=== PATIENT | male | born 1955 | race Caucasian/White ===

== ENCOUNTER 2022-09-25 00:57 | Emergency (ER) | payer MEDICARE, BC ==
[2022-09-25 01:52] LABS: BASOPHILS ABSOLUTE AUTO 0.04 K/mm3 (0.01-0.08); BASOPHILS PERCENT AUTO 0.4 % (0.1-1.2); EOSINOPHILS ABSOLUTE AUTO 0.51 K/mm3 (0.04-0.54); EOSINOPHILS PERCENT AUTO 5.6 (0.8-7.0); HEMATOCRIT 45.5 % (40.1-51.0); HEMOGLOBIN 14.8 gm/dl (13.7-17.5); IMMATURE GRAN ABSOLUTE AUTO 0.02 K/mm3 (0.00-0.10); IMMATURE GRAN PERCENT AUTO 0.2 % (<=1.0); LYMPHOCYTES ABSOLUTE AUTO 2.12 K/mm3 (1.32-3.57); LYMPHOCYTES PERCENT AUTO 23.3 % (21.8-53.1); MEAN CORPUSCULAR HEMOGLOBIN 28.7 pg (25.7-32.2); MEAN CORPUSCULAR HGB CONC 32.5 g/dl (32.2-35.5); MEAN CORPUSCULAR VOLUME 88.3 fl (79.0-92.2); MEAN PLATELET VOLUME 11.9 fl (9.4-12.3); MONOCYTES ABSOLUTE AUTO 0.85 K/mm3 (0.30-0.82); MONOCYTES PERCENT AUTO 9.3 % (5.3-12.2); NEUTROPHILS ABSOLUTE AUTO 5.57 K/mm3 (1.78-5.38); NEUTROPHILS PERCENT AUTO 61.2 % (34.0-67.9); PLATELET COUNT,PLT 199 K/mm3 (163-337); RED BLOOD CELL COUNT 5.15 M/mm3 (4.63-6.08); WHITE BLOOD CELL COUNT,WBC 9.11 K/mm3 (4.23-9.07)
[2022-09-25 02:11] LABS: INR 0.97; PROTHROMBIN TIME 10.4 SECONDS (9.7-12.0)
[2022-09-25 02:19] LABS: A/G RATIO 0.9 (1-2); ALANINE AMINOTRANSFERASE,ALT 21 U/L (16-63); ALBUMIN 3.4 g/dl (3.4-5.0); ALKALINE PHOSPHATASE 73 U/L (46-116); ANION GAP 14.5 (5-15); ASPARTATE AMNIOTRANSFERASE,AST 15 U/L (15-37); BILIRUBIN TOTAL 0.3 mg/dL (0.2-1.0); BLOOD UREA NITROGEN,BUN 15 mg/dL (7-18); BUN/CREATININE RATIO 13.6 (14-18); CALCIUM 8.8 mg/dL (8.5-10.1); CARBON DIOXIDE,CO2 25 mEq/L (21-32); CHLORIDE,CL 105 mEq/L (98-107); CREATININE 1.1 mg/dL (0.7-1.3); ESTIMATED GFR 74 mL/min (>60); GLUCOSE RANDOM 112 mg/dL (70-99); POTASSIUM,K 4.5 mEq/L (3.5-5.1); PROTEIN TOTAL,TP 7.2 g/dl (6.4-8.2); SODIUM,NA 140 mEq/L (136-145); TROPONIN I HIGH SENSITIVITY 6 pg/mL (<=76)
== END 2022-09-25 02:35 | disposition home or self-care (01) ==
LOC: JD.ED 00:57
DX: H81.10 Benign paroxysmal vertigo, unspecified ear (principal); Z91.048 Other nonmedicinal substance allergy status
CPT/HCPCS: 36415; 70450; 70450-26; 80053; 84484; 85025; 85610; 93005; 93010; 99283; 99284

== ENCOUNTER 2023-12-24 13:42 | Emergency (ER) | payer MEDICARE, BC ==
[2023-12-24 16:40] LABS: BASOPHILS PERCENT AUTO 0.1 % (0.0-1.0); HEMATOCRIT 49.9 % (42.0-52.0); HEMOGLOBIN 16.1 gm/dl (14.0-18.0); IMMATURE GRAN ABSOLUTE AUTO 0.08 K/mm3 (0.00-0.05); IMMATURE GRAN PERCENT AUTO 0.7 % (0.0-0.4); LYMPHOCYTES ABSOLUTE AUTO 0.5 K/mm3 (1.0-4.8); LYMPHOCYTES PERCENT AUTO 4.6 % (24.0-44.0); MEAN CORPUSCULAR HEMOGLOBIN 28.1 pg (28.0-32.0); MEAN CORPUSCULAR HGB CONC 32.3 g/dl (32.0-36.0); MEAN CORPUSCULAR VOLUME 87.2 fl (83.0-99.0); MEAN PLATELET VOLUME 11.7 fl (9.4-12.4); MONOCYTES ABSOLUTE AUTO 0.4 K/mm3 (0.0-0.8); MONOCYTES PERCENT AUTO 4.1 % (0.0-8.0); NEUTROPHILS ABSOLUTE AUTO 9.8 K/mm3 (1.8-7.7); NEUTROPHILS PERCENT AUTO 90.5 % (41.0-71.0); PLATELET COUNT,PLT 167 K/mm3 (150-400); RED BLOOD CELL COUNT 5.72 M/mm3 (4.52-5.90); WHITE BLOOD CELL COUNT,WBC 10.78 K/mm3 (3.9-11.3)
[2023-12-24] MEDS ORDERED: Naloxone 0.4 MG/ML SDV IVPUSH PRN ×3 (16:49→18:40)
[2023-12-24 17:15] LABS: A/G RATIO 0.3 (1-2); ALBUMIN 1.5 g/dl (3.4-5.0); ANION GAP 13.1 (5-15); BILIRUBIN TOTAL 0.9 mg/dL (0.2-1.0); C-REACTIVE PROTEIN 6.25 mg/dL (<0.30); CREATININE 1.1 mg/dL (0.7-1.3); EST CRCL DRUG DOSING (CG) 74.73 mL/min; POTASSIUM,K 4.1 mEq/L (3.5-5.1); PROTEIN TOTAL,TP 6.3 g/dl (6.4-8.2)
[2023-12-24] MEDS: fentaNYL 100 MCG/2 ML SDV IVPUSH ONE ×2 (17:23→20:26)
[2023-12-24] MEDS: HYDROmorphone 0.5 MG/0.5 ML Syringe IVPUSH ONE (18:11)
[2023-12-24] MEDS ORDERED: Iopamidol 612 MG/ML 100 ML Bottle IVPUSH ONE (18:26)
[2023-12-24 18:42] LABS: INR 1.08; PROTHROMBIN TIME 11.4 SECONDS (9.7-12.0)
[2023-12-24] MEDS: HYDROmorphone 1 MG/ML Syringe IVPUSH ONE ×2 (18:53→19:37)
[2023-12-24] MEDS: Piperacillin/Tazobactam 4.5 GM in Sodium Chloride 0.9% 100 ML IV ONE (18:57)
[2023-12-24] MEDS ORDERED: Heparin Sodium/D5W 250 ML IV SCH (19:30)
[2023-12-24] MEDS: Heparin Sodium 5,000 Units/ML Vial IVPUSH ONE (20:01)
[2023-12-24] MEDS: Heparin Sodium/D5W 250 ML IV SCH (20:16)
[2023-12-24] MEDS: fentaNYL 2,500 MCG in Sodium Chloride 0.9% 200 ML IV SCH (20:55)
[2023-12-24] MEDS: Ondansetron 4 MG/2 ML SDV IVPUSH ONE (22:55)
[2023-12-25 00:27] LABS: BASOPHILS ABSOLUTE AUTO 0.1 K/mm3 (0.0-0.2); BASOPHILS PERCENT AUTO 0.2 % (0.0-1.0); EOSINOPHILS ABSOLUTE AUTO 0.2 K/mm3 (0.0-0.4); EOSINOPHILS PERCENT AUTO 0.7 % (0.0-6.0); HEMOGLOBIN 17.3 gm/dl (14.0-18.0); IMMATURE GRAN ABSOLUTE AUTO 0.39 K/mm3 (0.00-0.05); IMMATURE GRAN PERCENT AUTO 1.7 % (0.0-0.4); LYMPHOCYTES ABSOLUTE AUTO 0.6 K/mm3 (1.0-4.8); LYMPHOCYTES PERCENT AUTO 2.8 % (24.0-44.0); MEAN CORPUSCULAR HEMOGLOBIN 29.1 pg (28.0-32.0); MEAN CORPUSCULAR HGB CONC 32.6 g/dl (32.0-36.0); MEAN CORPUSCULAR VOLUME 89.1 fl (83.0-99.0); MEAN PLATELET VOLUME 11.4 fl (9.4-12.4); MONOCYTES ABSOLUTE AUTO 1.5 K/mm3 (0.0-0.8); MONOCYTES PERCENT AUTO 6.5 % (0.0-8.0); NEUTROPHILS ABSOLUTE AUTO 20.1 K/mm3 (1.8-7.7); NEUTROPHILS PERCENT AUTO 88.1 % (41.0-71.0); PLATELET COUNT,PLT 201 K/mm3 (150-400); RED BLOOD CELL COUNT 5.95 M/mm3 (4.52-5.90); WHITE BLOOD CELL COUNT,WBC 22.76 K/mm3 (3.9-11.3)
[2023-12-25 00:54] LABS: LACTIC ACID 3.9 mmol/L (0.4-2.0)
[2023-12-25 00:55] LABS: A/G RATIO 0.3 (1-2); ALBUMIN 1.3 g/dl (3.4-5.0); ANION GAP 18.1 (5-15); BILIRUBIN TOTAL 1.4 mg/dL (0.2-1.0); BUN/CREATININE RATIO 15.6 (14-18); CALCIUM 7.9 mg/dL (8.5-10.1); CREATININE 1.8 mg/dL (0.7-1.3); EST CRCL DRUG DOSING (CG) 45.67 mL/min; POTASSIUM,K 4.1 mEq/L (3.5-5.1); PROTEIN TOTAL,TP 5.7 g/dl (6.4-8.2)
[2023-12-25] MEDS: Sodium Chloride 0.9% 2,000 ML IV ONE (01:09)
[2023-12-25 02:56] LABS: APPEARANCE,URINE CLEAR (Clear); BILIRUBIN,URINE 1+ (Negative); COLOR,URINE AMBER (Yellow); GLUCOSE,URINE NEGATIVE (Negative); KETONES,URINE NEGATIVE (Negative); LEUKOCYTE ESTERASE,URINE NEGATIVE (Negative); NITRITE,URINE NEGATIVE (Negative); OCCULT BLOOD,URINE TRACE-LYSED (Negative); PH,URINE 5.5 (5.0-8.0); PROTEIN,URINE 3+ (Negative)
[2023-12-25 03:06] LABS: EPITHELIAL CELLS,URINE NOT SEEN /hpf (0-5); RBC,URINE 0-5 /hpf (0-5); WBC,URINE 0-5 /hpf (0-5)
[2023-12-25 03:07] LABS: BACTERIA,URINE FEW /hpf (FEW); HYALINE CASTS,URINE 0-5 /lpf (0-5); MUCUS,URINE FEW /hpf (FEW)
== END 2023-12-25 03:43 ==
LOC: JD.ED 13:42
DX: K55.019 Acute (reversible) ischemia of small intestine, extent unspecified (principal); I81 Portal vein thrombosis; R74.02 Elevation of levels of lactic acid dehydrogenase [LDH]; I10 Essential (primary) hypertension; Z86.16 Personal history of COVID-19; Z79.899 Other long term (current) drug therapy; Z91.048 Other nonmedicinal substance allergy status
CPT/HCPCS: 36415; 74177; 80053; 81001; 82947; 82977; 83605; 83690; 83735; 83880; 85025; 85610; 85730; 86140; 96365; 96366; 96367; 96368; 96375; 96376; 99285; J1171; J1644; J2405; J2543; J3010; J3490; J7030; J7050